=== PATIENT | male | born 1980 | race Caucasian/White ===

== ENCOUNTER 2017-09-21 04:00 | Emergency (ER) | payer BC, OTHER ==
[~2017-09-21] VITALS: Ht 172.7 cm; Wt 106.6 kg
[~2017-09-21 04:00] MED LIST: HYDR-1231 PO; NAPR-243 PO
--- OUTSIDE RECORDS SUMMARY | 2017-09-21 04:06 | XMS REPORT | Continuity of Care Document ---
Author Author [facility] Organization [facility] Address Unknown Phone Unavailable Allergies Medications Problems Procedures Results Encounters ACCT No. Visit Date/Time Discharge Status Pt. Type Provider Facility Loc./Unit Complaint [id number] 05/10/2014 14:48:00 2013 15:33:00 DIS Emergency [id number] 01/12/2014 09:35:00 2013 23:59:59 CLS Outpatient
[2017-09-21] MEDS ORDERED: FAMOTIDINE 20MG/2ML IV (PEPCID) IV STA (04:14)
[2017-09-21] MEDS ORDERED: LIDOCAINE 2% VISCOUS 15 ML UDC PO ONE (04:15)
[2017-09-21] MEDS ORDERED: ANTACID SUSP 30 ML UDC (MYLANTA) PO ONE (04:15)
[2017-09-21] MEDS ORDERED: ASPIRIN 81 MG CHEW (CHILDREN'S ASA) PO ONE (04:15)
[2017-09-21 04:22] LABS: BASOPHILS % (AUTO) 0 % (0-10); EOSINOPHILS # (AUTO) 0.1 10^3/uL (0.0-0.3); EOSINOPHILS % (AUTO) 2 % (0-10); LYMPHOCYTES # (AUTO) 2.2 X 10^3 (1.0-4.0); LYMPHOCYTES % (AUTO) 36 % (12-44); MEAN CORPUSCULAR HEMOGLOBIN 28 PG (25-34); MEAN CORPUSCULAR HGB CONC 35 G/DL (32-36); MEAN CORPUSCULAR VOLUME 82 FL (80-99); MEAN PLATELET VOLUME 9.9 FL (7.4-10.4); MONOCYTES # (AUTO) 0.6 X 10^3 (0.0-1.0); MONOCYTES % (AUTO) 10 % (0-12); NEUTROPHILS # (AUTO) 3.3 X 10^3 (1.8-7.8); NEUTROPHILS % (AUTO) 53 % (42-75); PLATELET COUNT 224 10^3/uL (130-400); RED BLOOD COUNT 5.47 10^6/uL (4.35-5.85); WHITE BLOOD COUNT 6.2 10^3/uL (4.3-11.0)
[2017-09-21 04:33] LABS: INR 0.9 (0.8-1.4); PROTHROMBIN TIME PATIENT 12.6 SEC (12.2-14.7)
[2017-09-21 04:44] LABS: ALANINE AMINOTRANSFERASE 91 U/L (0-55); ALBUMIN 4.1 GM/DL (3.2-4.5); ANION GAP 10 MMOL/L (5-14); ASPARTATE AMINO TRANSFERASE 35 U/L (5-34); BILIRUBIN,TOTAL 0.5 MG/DL (0.1-1.0); BLOOD UREA NITROGEN 13 MG/DL (7-18); BUN/CREATININE RATIO 13; CARBON DIOXIDE 25 MMOL/L (21-32); CHLORIDE 105 MMOL/L (98-107); CREATININE SERUM 1.04 MG/DL (0.60-1.30); GFR ESTIMATED > 60; GLUCOSE 114 MG/DL (70-105); MAGNESIUM 2.4 MG/DL (1.8-2.4); POTASSIUM 3.9 MMOL/L (3.6-5.0); SODIUM 140 MMOL/L (135-145); TOTAL PROTEIN 7.1 GM/DL (6.4-8.2)
[2017-09-21 04:45] VITALS: BP 141/90
[2017-09-21] MEDS: NITROGLYCERIN 0.4 MG SL TABS BTL 25'S SL PRN ×3 (04:46→04:56)
--- NOTE | 2017-09-21 04:47 | ED Chest Pain ---
General Chief Complaint: Chest Pain Stated Complaint: CP,BACK PAIN Nursing Triage Note: chest pain radiating to back Nursing Sepsis Screen: No Definite Risk Source: patient Exam Limitations: no limitations (JOSEPH CORNEJO MD) History of Present Illness Time seen by provider: 04:04 Initial Comments Mr. Silverman presents to the emergency room with complaints of chest pain that woke him from sleep and hour or 2 ago that radiates to the middle back. Deep breathing makes it worse. He denies any cough or fever. He took 2 baby aspirin and decided to come to the emergency room. He rates the pain as 6/10. He has no known history of heart disease. He does have a family history of heart disease in multiple family members. He denies current or past alcohol or tobacco use. He had some mild associated nausea and lightheadedness at home. He had a history of "inflammation of my heart" a couple of years ago. (JOSEPH CORNEJO MD) Allergies and Home Medications Allergies Coded Allergies: Penicillins (Unverified Allergy, Unknown, 05/10/14) Home Medications No Active Prescriptions or Reported Meds Review of Systems Constitutional: no symptoms reported EENTM: No Symptoms Reported Respiratory: See HPI Cardiovascular: See HPI Gastrointestinal: See HPI Genitourinary: No Symptoms Reported Musculoskeletal: no symptoms reported Skin: no symptoms reported Psychiatric/Neurological: No Symptoms Reported Endocrine: No Symptoms Reported Hematologic/Lymphatic: No Symptoms Reported (JOSEPH CORNEJO MD) Past Oopuyqj-Hejhjy-Hanwti Hx Patient Social History Alcohol Use: Denies Use Recreational Drug Use: No Smoking Status: Never a Smoker 2nd Hand Smoke Exposure: No Recent Foreign Travel: No Contact w/Someone Who Travel: No Recent Infectious Disease Expo: No Recent Hopitalizations: No (JOSEPH CORNEJO MD) Immunizations Up To Date Tetanus Booster (TDap): Unknown PED Vaccines UTD: Yes (JOSEPH CORNEJO MD) Seasonal Allergies Seasonal Allergies: No (JOSEPH CORNEJO MD) Surgeries History of Surgeries: No (JOSEPH CORNEJO MD) Respiratory History of Respiratory Disorde: No (JOSEPH CORNEJO MD) Cardiovascular History of Cardiac Disorders: Yes Cardiac Disorders: Pericarditis (JOSEPH CORNEJO MD) Neurological History of Neurological Disord: No (JOSEPH CORNEJO MD) Genitourinary History of Genitourinary Disor: Yes Genitourinary Disorders: Kidney Stones (JOSEPH CORNEJO MD) Gastrointestinal History of Gastrointestinal Di: No (JOSEPH CORNEJO MD) Musculoskeletal History of Musculoskeletal Dis: No (JOSEPH CORNEJO MD) Endocrine History of Endocrine Disorders: No (JOSEPH CORNEJO MD) HEENT History of HEENT Disorders: No (JOSEPH CORNEJO MD) Cancer History of Cancer: No (JOSEHP CORNEJO MD) Psychosocial History of Psychiatric Problem: No (JOSEPH CORNEJO MD) Integumentary History of Skin or Integumenta: No (JOSEPH CORNEJO MD) Blood Transfusions History of Blood Disorders: No (JOSEPH CORNEJO MD) Physical Exam Vital Signs Vital Sign - Last 12Hours 09/21/17 09/21/17 04:03 04:08 Temp 98.2 Pulse 82 Resp 16 B/P (MAP) 143/102 Pulse Ox 99 O2 Delivery Room Air (BERTRAND BLANCO) Vital Signs Capillary Refill : Less Than 3 Seconds (JOSEPH CORNEJO MD) General Appearance: WD/WN, Mild Distress HEENT: PERRL/EOMI, Pharynx Normal Neck: Full Range of Motion, Supple Respiratory: Chest Non Tender, Lungs Clear, Normal Breath Sounds Cardiovascular: Regular Rate, Rhythm, No Edema Gastrointestinal: Normal Bowel Sounds, Soft, Tenderness (epigastrium) Extremity: Normal Capillary Refill, Non Tender Neurologic/Psychiatric: Alert, Oriented x3 Skin: Normal Color, Warm/Dry (BERTRAND BLANCO J) Progress/Results/Core Measures Results/Orders Lab Results Laboratory Tests Test 09/21/17 04:12 Range/Units White Blood Count 6.2 4.3-11.0 10^3/uL Red Blood Count 5.47 4.35-5.85 10^6/uL Hemoglobin 15.5 13.3-17.7 G/DL Hematocrit 45 40-54 % Mean Corpuscular Volume 82 80-99 FL Mean Corpuscular Hemoglobin 28 25-34 PG Mean Corpuscular Hemoglobin Concent 35 32-36 G/DL Red Cell Distribution Width 13.0 10.0-14.5 % Platelet Count 224 130-400 10^3/uL Mean Platelet Volume 9.9 7.4-10.4 FL Neutrophils (%) (Auto) 53 42-75 % Lymphocytes (%) (Auto) 36 12-44 % Monocytes (%) (Auto) 10 0-12 % Eosinophils (%) (Auto) 2 0-10 % Basophils (%) (Auto) 0 0-10 % Neutrophils # (Auto) 3.3 1.8-7.8 X 10^3 Lymphocytes # (Auto) 2.2 1.0-4.0 X 10^3 Monocytes # (Auto) 0.6 0.0-1.0 X 10^3 Eosinophils # (Auto) 0.1 0.0-0.3 10^3/uL Basophils # (Auto) 0.0 0.0-0.1 10^3/uL Erythrocyte Sedimentation Rate 4 0-15 MM/HR Prothrombin Time 12.6 12.2-14.7 SEC INR Comment 0.9 0.8-1.4 Activated Partial Thromboplast Time 27 24-35 SEC D-Dimer 0.34 0.00-0.49 UG/ML Sodium Level 140 135-145 MMOL/L Potassium Level 3.9 3.6-5.0 MMOL/L Chloride Level 105 98-107 MMOL/L Carbon Dioxide Level 25 21-32 MMOL/L Anion Gap 10 5-14 MMOL/L Blood Urea Nitrogen 13 7-18 MG/DL Creatinine 1.04 0.60-1.30 MG/DL Estimat Glomerular Filtration Rate > 60 BUN/Creatinine Ratio 13 Glucose Level 114 H 70-105 MG/DL Calcium Level 9.0 8.5-10.1 MG/DL Magnesium Level 2.4 1.8-2.4 MG/DL Total Bilirubin 0.5 0.1-1.0 MG/DL Aspartate Amino Transf (AST/SGOT) 35 H 5-34 U/L Alanine Aminotransferase (ALT/SGPT) 91 H 0-55 U/L Alkaline Phosphatase 96 40-136 U/L Myoglobin 27.5 10.0-92.0 NG/ML Troponin I < 0.30 <0.30 NG/ML C-Reactive Protein High Sensitivity 0.18 0.00-0.50 MG/DL Total Protein 7.1 6.4-8.2 GM/DL Albumin 4.1 3.2-4.5 GM/DL Triglycerides Level 132 <150 MG/DL Cholesterol Level 173 < 200 MG/DL LDL Cholesterol Direct 114 1-129 MG/DL VLDL Cholesterol 26 5-40 MG/DL HDL Cholesterol 40 40-60 MG/DL Lipase 557 H 8-78 U/L (BERTRAND BLANCO) My Orders Orders - BERTRAND BLANCO Hydrocodone/Apap 5/325 Tablet (Lortab 5 (09/21/17 07:30) (BERTRAND BLANCO) Medications Given in ED Current Medications Medications Dose Ordered Sig/Mohit Route Start Time Stop Time Status Last Admin Dose Admin Acetaminophen/ Hydrocodone Bitart 1 tab ONCE ONCE PO 09/21/17 07:30 09/21/17 07:31 DC 09/21/17 07:26 1 TAB Al Hydrox/Mg Hydrox/Simethicone 30 ml ONCE ONCE PO 09/21/17 04:15 09/21/17 04:16 DC 09/21/17 04:23 30 ML Aspirin 162 mg ONCE ONCE PO 09/21/17 04:15 09/21/17 04:16 DC 09/21/17 04:23 162 MG Lidocaine HCl 15 ml ONCE ONCE PO 09/21/17 04:15 09/21/17 04:16 DC 09/21/17 04:23 15 ML Nitroglycerin 0.4 mg UD PRN SL 09/21/17 04:45 09/21/17 04:58 DC 09/21/17 04:56 0.4 MG Sodium Chloride 1,000 ml @ 0 mls/hr Q0M ONCE IV 09/21/17 06:04 09/21/17 06:05 DC 09/21/17 06:10 0 MLS/HR (BERTRAND BLANCO) Vital Signs/I&O Vital Sign - Last 12Hours 09/21/17 09/21/17 09/21/17 09/21/17 04:03 04:08 04:08 04:45 Temp 98.2 Pulse 82 67 Resp 16 16 B/P (MAP) 143/102 141/90 Pulse Ox 99 99 99 O2 Delivery Room Air Room Air Room Air Room Air 09/21/17 09/21/17 09/21/17 04:50 04:55 05:00 Pulse 75 73 89 Resp 19 16 19 B/P (MAP) 126/94 128/88 128/76 Pulse Ox 93 93 94 O2 Delivery Room Air Room Air Room Air (BERTRAND BLANCO) Blood Pressure Mean: 116 Progress Note #1: Time: 04:46 Progress Note Patient took 2 baby aspirin at home. The balance of his aspirin was given here. Patient has some minimal epigastric discomfort on palpation. Pain was also worse with inspiration. GI cocktail was administered along with Pepcid. This did not improve his pain. Nitroglycerin is now being attempted. A d- dimer was added to the labs. Chest x-ray was unremarkable. Progress Note #2: Time: 04:58 Progress Note Patient had minimal improvement to 4/10 on the pain scale after receiving the nitroglycerin doses. Patient notes pain does improve with sitting up straight or leaning forward. Progress Note #3: Time: 06:01 Progress Note Patient's pain is gradually improving. He does feel little bit better sitting up. Labs have been reviewed in entirety and he has a modestly elevated lipase. A gallbladder ultrasound has been ordered for further evaluation. Patient has had nothing to eat or drink since midnight except his GI cocktail. Care of this patient is being transferred to Dr. Blanco at this time. Patient will receive a liter of IV fluids. He is not requiring any treatment for pain at this time. (JOSEPH CORNEJO MD) ECG Initial ECG Impression Date: Sep 21, 2017 Initial ECG Impression Time: 04:03 Initial ECG Rate: 66 Initial ECG Rhythm: Normal Sinus Initial ECG Intervals: Normal Initial ECG Impression: Normal Comment Normal sinus rhythm with no ST elevation or depression. No abnormal intervals or axis deviation. (JOSEPH CORNEJO MD) Diagnostic Imaging Diagonstic Imaging: Xray Plain Films/CT/US/NM/MRI: chest Comments Chest x-ray viewed by me and report not yet available. No acute abnormalities appreciated. (JOSEPH CORNEJO MD) Comments [facility] [place], [place] NAME: WILLIAMS SILVERMAN [facility] REC#: [id number] PT STATUS: REG ER : 1980 PHYSICIAN: JOSEPH CORNEJO MD ADMIT DATE: 09/21/17/ER Draft Date of Exam:09/21/17 CHEST PA/LAT (2 VIEW) INDICATION: Chest and back pain worsening with inspiration. FINDINGS: The lungs are clear. The heart and vessels normal. There is no effusion or pneumothorax. IMPRESSION: Negative. Dictated on workstation # [id number] Dict: 09/21/1733 Trans: 09/21/1745 [facility] [id number] Interpreted by: BHARTI HENRIQUEZ Electronically signed by: Reviewed: Reviewed by Me Diagonstic Imaging: Ultrasound Plain Films/CT/US/NM/MRI: abdomen (right upper quadrant) Comments [facility] [place] NAME: WILLIAMS SILVERMAN [facility] REC#: [id number] PT STATUS: REG ER : 1980 PHYSICIAN: JOSEPH CORNEJO MD ADMIT DATE: 09/21/17/ER Draft Date of Exam:09/21/17 US GALLBLADDER [id number] PROCEDURE: US Gallbladder. TECHNIQUE: Multiple real-time grayscale images were obtained over the right upper quadrant in various projections. INDICATION: Pain. FINDINGS: Gallbladder appeared normal. No stone or sludge. The liver parenchyma appeared normal. There is no intra-or extrahepatic bile duct dilatation. The right kidney appeared normal. There is no ascites. The pancreas largely obscured. IMPRESSION: Normal right upper quadrant ultrasound. Dictated on workstation # [id number] Dict: 09/21/1731 Trans: 09/21/1733 [id number] Interpreted by: BHARTI HENRIQUEZ Electronically signed by: Reviewed: Reviewed by (BERTRAND BLANCO) Transfer of Care Transfer of Care Time: 06:00 Care transferred to: liss (BERTRAND BLANCO) Departure Impression Impression: Primary Impression: Pancreatitis, acute Qualified Codes: K85.90 - Acute pancreatitis without necrosis or infection, unspecified Disposition: HOME, SELF-CARE Condition: Stable Departure-Patient Inst. Decision time for Depature: 08:39 (BERTRAND BLANCO) Referrals: JEREMIE CEDEÑO DO (PCP/Family) Primary Care Physician Patient Instructions: Pancreatitis (DC) Add. Discharge Instructions: Stick to a clear liquid diet and slowly advance that diet towards a more regular diet as tolerated over the next 2-3 days. Plan to follow-up the next 1- 2 weeks with your primary care physician. If you're having pain Tylenol does not help you can use the hydrocodone tablet. Hydrocodone will cause drowsiness as well as constipation. If you're having nausea you can place one tablet of Zofran under your tongue every 6 hours as needed. If your symptoms are unmanageable or getting worse or you have new, worrisome symptoms such as fever , then you should return to the ER. All discharge instructions reviewed with patient and/or family. Voiced understanding. Scripts Hydrocodone/Acetaminophen (Hydrocodon -Acetaminophen 5-325) 1 Each Tablet 1-2 EACH PO Q6H Y for BREAKTHROUGH PAIN, #15 TAB 0 Refills Prov: BERTRAND BLANCO 09/21/17 Ondansetron (Ondansetron Odt) 4 Mg Tab.rapdis 4 MG PO Q6H Y for NAUSEA/VOMITING, #8 TAB 0 Refills Prov: BERTRAND BLANCO 09/21/17 Work/School Note: Work Release Form Date Seen in the Emergency Department: Sep 21, 2017 Return to Work: Sep 22, 2017 Restrictions: No Restrictions Copy Copies To 1: JEREMIE CEDEÑO JOSHUA T MD Sep 21, 2017 04:47 BERTRAND BLANCO Sep 21, 2017 06:43
[2017-09-21 04:50] VITALS: BP 126/94
[2017-09-21 04:53] LABS: MYOGLOBIN SERUM 27.5 NG/ML (10.0-92.0)
[2017-09-21 04:55] VITALS: BP 128/88
[2017-09-21 05:00] VITALS: BP 128/76
[2017-09-21 05:20] LABS: hs C REACTIVE PROTEIN 0.18 MG/DL (0.00-0.50)
[2017-09-21] MEDS ORDERED: NS IV 1000 ML 1,000 ML IV ONE (06:04)
[2017-09-21 06:24] LABS: CHOLESTEROL 173 MG/DL (< 200); DIRECT LDL 114 MG/DL (1-129); TRIGLYCERIDES 132 MG/DL (<150); VLDL CHOLESTEROL 26 MG/DL (5-40)
--- NOTE | 2017-09-21 06:45 | Diagnostic Imaging Report ---
INDICATION: Chest and back pain worsening with inspiration. FINDINGS: The lungs are clear. The heart and vessels normal. There is no effusion or pneumothorax. IMPRESSION: Negative. Dictated by: Dictated on workstation # [id number]
[2017-09-21] MEDS ORDERED: HYDROcodone/APAP 5 MG/325 MG (LORTAB) TAB PO ONE (07:30)
--- NOTE | 2017-09-21 07:34 | Diagnostic Imaging Report ---
PROCEDURE: US Gallbladder. TECHNIQUE: Multiple real-time grayscale images were obtained over the right upper quadrant in various projections. INDICATION: Pain. FINDINGS: Gallbladder appeared normal. No stone or sludge. The liver parenchyma appeared normal. There is no intra-or extrahepatic bile duct dilatation. The right kidney appeared normal. There is no ascites. The pancreas largely obscured. IMPRESSION: Normal right upper quadrant ultrasound. Dictated by: Dictated on workstation # [id number]
[2017-09-21] MEDS ORDERED: ONDA4TAB11 PO (08:41)
[2017-09-21] MEDS ORDERED: HYDR-3812 PO (08:41)
[2017-09-21 08:53] VITALS: BP 125/86
== END 2017-09-21 08:58 | disposition home or self-care (01) ==
LOC: EDUNIT# 04:00 → ER 04:02
DX: K85.90 Acute pancreatitis without necrosis or infection, unspecified (principal); Z87.442 Personal history of urinary calculi
CPT/HCPCS: 36415; 71020; 76705; 80053; 80061; 83690; 83735; 83874; 84484; 85025; 85379; 85610; 85652; 85730; 86141; 93005; 93041; 96361; 96374

== ENCOUNTER → 2017-09-23 | Outpatient (CLI) | payer OTHER ==
[~2017-09-23] MED LIST changes: +HYDR-3812 PO; +ONDA4TAB11 PO
[2017-09-23 12:35] LABS: BILIRUBIN,DIRECT 0.3 MG/DL (0.0-0.3); BILIRUBIN,INDIRECT 0.5 MG/DL; BILIRUBIN,TOTAL 0.8 MG/DL (0.1-1.0); TOTAL PROTEIN 7.3 GM/DL (6.4-8.2)
--- NOTE | 2017-09-23 13:12 | Diagnostic Imaging Report ---
PROCEDURE: CT abdomen without contrast. TECHNIQUE: Multiple contiguous axial images were obtained through the abdomen without the use of intravenous contrast. INDICATION: Acute pancreatitis. Mid upper abdominal pain. FINDINGS: The lung bases demonstrate no significant abnormality. There is diffuse fatty infiltration in the liver. The gallbladder demonstrates no calcified stones. The spleen size is at the upper limits of normal. The adrenals appear unremarkable. There is fatty stranding around the pancreas which may relate to acute edematous pancreatitis. Assessment for necrosis needs an enhanced exam. There is no fluid collection or abscess. The abdominal aorta is normal in caliber. No para-aortic significantly enlarged lymph nodes are seen. No ascites. The osseous structures appear grossly unremarkable. IMPRESSION: 1. There is mild fatty stranding around the pancreas suggestive of acute pancreatitis as indicated in the history with no fluid collection or abscess. 2. Diffuse hepatic steatosis. Dictated by: Dictated on workstation # [id number]
== END ==
LOC: RAD 12:02
PROVIDERS: ATTEND Family Medicine
DX: K85.90 Acute pancreatitis without necrosis or infection, unspecified (principal); K76.0 Fatty (change of) liver, not elsewhere classified
CPT/HCPCS: 36415; 74150; 80076; 82150; 83690

== ENCOUNTER 2020-02-19 08:42 | Outpatient (RCR) | payer OTHER ==
[~2020-02-19 08:42] MED LIST changes: +ACHD5005 PO; -HYDR-3812 PO
== END 2020-04-28 | disposition home or self-care (01) ==
PROVIDERS: ATTEND Nurse Practitioner Family
DX: M25.811 Other specified joint disorders, right shoulder (principal)

== ENCOUNTER → 2020-05-23 | Outpatient (CLI) | payer OTHER ==
--- NOTE | 2020-05-23 11:12 | Diagnostic Imaging Report ---
MRI RT UPPER EXT JOINT W/O TECHNIQUE: Multiplanar, multisequence MR imaging of the right shoulder was performed without contrast. COMPARISON: None available. INDICATION: Right shoulder pain. FINDINGS: Rotator cuff: Mild tendinopathy of the supraspinatus. No superimposed tear. The infraspinatus, teres minor, and subscapularis are all intact. No rotator cuff muscle atrophy or edema. Glenoid labrum: No chondrolabral separation or paralabral cyst. Long head of biceps: Long head of biceps is normally positioned within the bicipital groove. The intracapsular segment is intact. Bones and cartilage: Humeral head is normal in morphology without fracture or focal osseous lesion. No glenohumeral chondromalacia. Mild hypertrophic degenerative arthritis of the acromioclavicular joint has tiny inferior-projecting osteophytes. Soft tissues: No glenohumeral joint effusion. No MRI findings to suggest adhesive capsulitis. No fluid or inflammatory like signal within the subacromial/subdeltoid space to indicate bursitis. IMPRESSION: 1. No rotator cuff tear. Mild tendinopathy of the supraspinatus. 2. Long head of biceps is intact. 3. No features of labral tear on non arthrogram imaging, for which nondisplaced tears can be occult. Dictated by: Dictated on workstation # [id number]
== END ==
LOC: RAD 04-19 12:23
PROVIDERS: ATTEND Nurse Practitioner Family
DX: M25.811 Other specified joint disorders, right shoulder (principal); M75.91 Shoulder lesion, unspecified, right shoulder
CPT/HCPCS: 73221

== ENCOUNTER 2020-07-03 05:43 | Outpatient (CLI) | payer OTHER ==
[~2020-07-03] VITALS: Ht 172.7 cm; Wt 109.1 kg
== END 2020-07-03 12:58 | disposition home or self-care (01) ==
LOC: PREOP 05:43 → EDSTATUS 13:00
PROVIDERS: ATTEND Orthopaedic Surgery
DX: Z01.818 Encounter for other preprocedural examination (principal)

== ENCOUNTER → 2020-09-20 | Outpatient (CLI) | payer OTHER ==
[~2020-09-20] MED LIST changes: +OXYC1TAB87 PO
--- NOTE | 2020-09-20 14:49 | Diagnostic Imaging Report ---
INDICATION: Thyroid nodule. TECHNIQUE: Grayscale sonographic images of the thyroid gland. CORRELATION STUDY: None FINDINGS: RIGHT LOBE: Borderline enlarged at 5.1 x 1.9 x 2.0 cm. There is normal echotexture about the right lobe. LEFT LOBE: Borderline enlarged at 5.1 x 1.6 x 2.0 cm. Along the margin of left lobe and isthmus is a small, hypoechoic but solid-appearing nodule, 7 x 6 x 3 mm. Isthmus otherwise appearing unremarkable. IMPRESSION: Borderline enlarged thyroid gland. Small, currently indeterminate but relatively benign-appearing left-sided nodule. Follow-up ultrasound imaging in approximately one year recommended. (Normal gland size: 4-5 x 2 x 2 cm) Dictated by: Dictated on workstation # [id number]
== END ==
LOC: RAD 12:20
PROVIDERS: ATTEND Family Medicine
DX: E04.1 Nontoxic single thyroid nodule (principal)
CPT/HCPCS: 76536

== ENCOUNTER 2020-10-03 10:57 | Outpatient (RCR) | payer OTHER | END 2020-10-09 | disposition home or self-care (01) | PROVIDERS: ATTEND Orthopaedic Surgery | DX: S43.431A Superior glenoid labrum lesion of right shoulder, initial encounter (principal); Z98.890 Other specified postprocedural states; X58.XXXA Exposure to other specified factors, initial encounter ==